=== PATIENT | male | born 1975 | race Caucasian/White ===

== ENCOUNTER 2017-03-09 19:55 | Emergency (ER) | payer OTHER ==
[2017-03-09 20:05] VITALS: BP 118/83; PULSE 73; RESP 20; TEMP 98.2
[2017-03-09] MEDS ORDERED: KETOROLAC 60 MG/2 ML VIAL IM STA (20:29)
--- NOTE | 2017-03-09 20:34 | ED ---
General Adult HPI - General Chief complaint: Extremity Injury, Upper Stated complaint: Fall Time Seen by Provider: 03/09/17 20:22 Source: patient Mode of arrival: ambulatory Limitations: no limitations - History of Present Illness Initial comments: This 41-year-old white male presents with a complaint of falling down approximately 13 steps one week ago. He states that he stepped on a toy and fell down the steps and hurt multiple areas of his body. He is complaining of some pain to his sternal region of his chest, his right ribs, his right pinky finger, his thoracic spine, and his left knee. He states that he has not followed up until now as he was trying to tough it out. He has tried Motrin without any relief. He denies any other injuries or complaints or modifying factors. - Related Data Previous Rx's Medication Instructions Recorded Amoxicillin 500 mg PO Q8H #30 capsule 03/09/17 Hydrocodone/Acetaminophen [Solomon 1 - 2 each PO Q4HR PRN #20 tab 03/09/17 5-325] Allergies Allergy/AdvReac Type Severity Reaction Status Date / Time meperidine [From Demerol] AdvReac SEIZURES Verified 03/09/17 20:29 Review of Systems ROS Statement: Those systems with pertinent positive or pertinent negative responses have been documented in the HPI. ROS Other: All systems not noted in ROS Statement are negative. Past Medical History Past Medical History: No Reported History History of Any Multi-Drug Resistant Organisms: None Reported Past Surgical History: Cholecystectomy, Orthopedic Surgery, Tonsillectomy Past Psychological History: No Psychological Hx Reported Smoking Status: Current every day smoker Past Alcohol Use History: None Reported Past Drug Use History: None Reported General Exam - General Exam Comments Initial Comments: GENERAL: The patient is well nourished and well hydrated. VITAL SIGNS: Heart rate, blood pressure, respiratory rate reviewed as recorded in nurse's notes. EYES: Pupils are round and reactive. Extraocular movements are intact. No conjunctival / lid redness or swelling. ENT: No external evidence of injury, swelling, or ecchymosis. Airway is patent. Throat is clear. There is very poor dentition noted. There is some mild swelling and tenderness present to his right maxillary region. NECK: Nontender. No swelling or evidence of injury. No subcutaneous emphysema. Trachea is midline. No thyroid mass. HEART: Regular rate and rhythm. Good peripheral pulses. LUNGS/CHEST: Breath sounds clear and equal bilaterally. No rales, rhonchi, or wheezes. There is some mild tenderness present to the sternal region. There is also some slight tenderness present to the right anterior inferior ribs. There is no ecchymosis or subcutaneous emphysema noted. ABDOMEN: Abdomen soft without tenderness. No palpable masses or organomegaly. No peritoneal signs. No abdominal wall swelling or ecchymosis. EXTREMITIES: There is some tenderness present to the bilateral perithoracic musculature. There also is some tenderness to the left knee diffusely and minimally. There is some increased pain to the right pinky finger with decreased range of motion. NEUROLOGIC: Sensation is grossly intact. Cranial nerve exam reveals face is symmetrical, tongue is midline, speech is clear. SKIN: No abrasions or ecchymosis is noted. No induration or masses noted. PSYCHIATRIC: Alert and oriented. Appropriate behavior and judgment. Limitations: no limitations Course Vital Signs 03/09/17 20:02 Temperature 98.2 F Pulse Rate 73 Respiratory 20 Rate Blood Pressure 118/83 O2 Sat by Pulse 98 Oximetry Medical Decision Making - Medical Decision Making The patient was seen and examined. All diagnostics were reviewed. The x-ray of the sternum, chest, right ribs, thoracic spine, and left knee do not show any evidence of fracture or acute process as per radiology. The x-ray of the right hand does not show any fracture per radiology but there is a suspected fracture noted to the proximal phalanx on the right fifth digit per my review. This does seem to correlate with current symptomatology. He is placed in a 3 inch Ortho-Glass custom molded splint by myself in a radial gutter fashion. He is counseled regarding his injuries in detail. He further relates that he thinks he has an abscessed tooth disease had some dull ache to his right upper dentition with some mild right facial swelling and is asking for an antibiotic. It is felt as though this is reasonable but is counseled to follow up with a dentist as soon as possible. Disposition Clinical Impression: Strain of thoracic region, Contusion of left knee, Sternal contusion, Dental abscess, Chest wall contusion, Avulsion fracture of proximal phalanx of finger Disposition: HOME SELF-CARE Condition: Good Instructions: Chest Wall Pain (ED), Finger Fracture (ED), Knee Pain (ED), Thoracic Back Strain (ED), Dental Abscess (ED) Prescriptions: Amoxicillin 500 mg PO Q8H #30 capsule Hydrocodone/Acetaminophen [Solomon 5-325] 1 - 2 each PO Q4HR PRN #20 tab PRN Reason: Pain Referrals: John Rodriguez DO [Primary Care Provider] - 1-2 days Time of Disposition: 21:39
--- NOTE | 2017-03-09 20:59 | XR ---
EXAMINATION TYPE: XR ribs RT w pa chest xray DATE OF EXAM: 03/09/2017 CLINICAL HISTORY: Chest pain. TECHNIQUE: Single frontal view of the chest is obtained. 2V right rib radiographs are obtained. COMPARISON: None FINDINGS: There is no focal air space opacity, pleural effusion, or pneumothorax seen. The cardiac silhouette size is within normal limits. No displaced fracture. No visualized rib fracture. IMPRESSION: No acute cardiopulmonary process or displaced rib fracture.
--- NOTE | 2017-03-09 21:02 | XR ---
EXAMINATION TYPE: XR thoracic spine 2V DATE OF EXAM: 03/09/2017 CLINICAL HISTORY: Fall with mid back pain. TECHNIQUE: Frontal, lateral, and swimmer's view of thoracic spine are obtained. COMPARISON: None. FINDINGS: Thoracic spine show satisfactory alignment without evidence of acute fracture or dislocatio n. Vertebral body heights and disc space heights are preserved. Visualized ribs are unremarkable. IMPRESSION: No acute fracture or dislocation is seen in the thoracic spine.
--- NOTE | 2017-03-09 21:03 | XR ---
EXAMINATION TYPE: XR knee complete LT DATE OF EXAM: 03/09/2017 CLINICAL HISTORY: Pain after fall down the stairs. TECHNIQUE: Three views of the left knee are obtained. COMPARISON: None. FINDINGS: There is no acute fracture/dislocation evident in left knee. The tri-compartment joint sp aces appear within normal limits. The overlying soft tissue appears unremarkable. IMPRESSION: There is no acute fracture or dislocation in the left knee.
--- NOTE | 2017-03-09 21:04 | XR ---
EXAMINATION TYPE: XR hand complete RT DATE OF EXAM: 03/09/2017 CLINICAL HISTORY: Pain after fall down the stairs. TECHNIQUE: Frontal, lateral and oblique images of the right hand are obtained. COMPARISON: None. FINDINGS: The patient distal interphalangeal joints are flexed during the examination, slightly limi ting evaluation. There is no acute fracture/dislocation evident in the right hand. The joint spaces i n the right hand appear within normal limits. The overlying soft tissue appears unremarkable. IMPRESSION: There is no acute fracture or dislocation in the right hand.
--- NOTE | 2017-03-09 21:07 | XR ---
EXAMINATION TYPE: XR sternum DATE OF EXAM: 03/09/2017 COMPARISON: NONE HISTORY: Fall down the stairs and sternal pain. TECHNIQUE: Frontal and lateral sternal radiographs are obtained. FINDINGS: No evidence of displaced fracture of the sternal manubrium, body, or xiphoid process. IMPRESSION: No evidence of acute fracture or dislocation.
== END 2017-03-09 21:47 | disposition home or self-care (01) ==
LOC: EC 19:55
DX: S62.616A Displaced fracture of proximal phalanx of right little finger, initial encounter for closed fracture (principal); S20.211A Contusion of right front wall of thorax, initial encounter; S80.02XA Contusion of left knee, initial encounter; K04.7 Periapical abscess without sinus; M54.6 Pain in thoracic spine; F17.200 Nicotine dependence, unspecified, uncomplicated; Z88.5 Allergy status to narcotic agent; W18.09XA Striking against other object with subsequent fall, initial encounter
CPT/HCPCS: 71101; 72070; 71120; 73130; 73562; 99284; 29125; 96372; J1885

== ENCOUNTER 2019-03-23 14:05 | Emergency (ER) | payer OTHER ==
[2019-03-23 14:14] VITALS: BP 129/67; PULSE 82; RESP 18; TEMP 98.8
--- NOTE | 2019-03-23 14:43 | ED ---
ENT HPI - General Chief complaint: ENT Stated complaint: ear & back pain Time Seen by Provider: 03/23/19 14:19 Source: patient Mode of arrival: ambulatory Limitations: no limitations - History of Present Illness Initial comments: Patient is a 43-year-old male presenting to the emergency department with chief complaint of earache. Patient reports the symptoms started approximately 2 days after he was using meth. Patient reports he has developed right ear otalgia that is exacerbated with traction of the ear. Patient also reports intermittent yellow discharge. Patient denies any fevers nausea or vomiting. Patient also reports that after he was using meth his "muscles locked up" for a short period of time. Patient reports the symptoms have not reappeared since then. Patient denies taking any medication to alleviate the symptoms. - Related Data Previous Rx's Medication Instructions Recorded Amoxicillin 500 mg PO Q8H #30 capsule 03/09/17 Hydrocodone/Acetaminophen [[place] 1 - 2 each PO Q4HR PRN #20 tab 03/09/17 5-325] Allergies Allergy/AdvReac Type Severity Reaction Status Date / Time meperidine [From Demerol] AdvReac SEIZURES Verified 03/23/19 14:14 Review of Systems ROS Statement: Those systems with pertinent positive or pertinent negative responses have been documented in the HPI. ROS Other: All systems not noted in ROS Statement are negative. Past Medical History Past Medical History: No Reported History History of Any Multi-Drug Resistant Organisms: None Reported Past Surgical History: Cholecystectomy, Orthopedic Surgery, Tonsillectomy Additional Past Surgical History / Comment(s): tendon sx. Past Psychological History: No Psychological Hx Reported Smoking Status: Current every day smoker Past Alcohol Use History: None Reported Past Drug Use History: Methamphetamine General Exam Limitations: no limitations General appearance: alert, in no apparent distress Head exam: Present: atraumatic, normocephalic, normal inspection Eye exam: Present: normal appearance, PERRL, EOMI. Absent: conjunctival injection Pupils: Present: normal accommodation ENT exam: Present: normal exam, normal oropharynx, mucous membranes moist, TM's normal bilaterally, normal external ear exam (Patent, erythematous external auditory canal in the right ear) Neck exam: Present: normal inspection, full ROM. Absent: tenderness, meningismus Respiratory exam: Present: normal lung sounds bilaterally Cardiovascular Exam: Present: regular rate, normal rhythm, normal heart sounds Extremities exam: Present: normal inspection, full ROM Back exam: Present: normal inspection, full ROM. Absent: tenderness, CVA tenderness (R), CVA tenderness (L), muscle spasm Neurological exam: Present: alert, oriented X3 Psychiatric exam: Present: normal affect, normal mood Skin exam: Present: warm, intact, normal color Course Vital Signs 03/23/19 14:08 Temperature 98.8 F Pulse Rate 82 Respiratory 18 Rate Blood Pressure 129/67 O2 Sat by Pulse 98 Oximetry Medical Decision Making - Medical Decision Making Patient is a 40-year-old male presenting to emergency Department with chief complaint of earache. Patient had developed right ear pain after using meth 2 days ago. Patient also had discharge. Physical examination there is erythema in the right external auditory canal. Tympanic membrane was visualized and it is nonbulging and not erythematous. Patient will be treated with otic drops. The case of muscle spasms after his meth could be related to the use of the illegal substance. Patient advised to avoid using meth. I counseled the patient for smoking cessation for greater than 3 minutes. Strict return parameters were thoroughly discussed the patient was understanding and agreeable. Patient was to follow with primary care if symptoms not improved. Case discussed with physician. Disposition Clinical Impression: Otitis externa Disposition: HOME SELF-CARE Condition: Stable Instructions (If sedation given, give patient instructions): Earache (ED) Additional Instructions: Please take prescribed medication as directed. Please follow with primary care. Please return to emergency department if symptoms worsen. Please avoid using meth. Is patient prescribed a controlled substance at d/c from ED?: No Referrals: None,Stated [Primary Care Provider] - 1-2 days Time of Disposition: 14:43
== END 2019-03-23 15:07 | disposition home or self-care (01) ==
LOC: EC 14:05
DX: H60.91 Unspecified otitis externa, right ear (principal); M62.830 Muscle spasm of back; F15.90 Other stimulant use, unspecified, uncomplicated; Z71.6 Tobacco abuse counseling; F17.200 Nicotine dependence, unspecified, uncomplicated; Z88.5 Allergy status to narcotic agent
CPT/HCPCS: 99283; 99406

== ENCOUNTER 2020-08-24 07:36 | Emergency (ER) | payer OTHER ==
[2020-08-24 07:40] VITALS: TEMP 98
--- NOTE | 2020-08-24 08:10 | ED ---
Chest Pain HPI - General Chief Complaint: Chest Pain Stated Complaint: Chest pain Time Seen by Provider: 08/24/20 07:44 Source: patient, RN notes reviewed Mode of arrival: ambulatory Limitations: no limitations - History of Present Illness Initial Comments: This is a 45-year-old male with a prior history of drug and alcohol abuse which she states she's been clean for quite some time now states for the past several days she's had right-sided chest pain and shortness of breath when he is in a supine position. He also states the pain is worse when he supine and she also gets worse when he is on his left side but eases up and goes way when he is on his right side. He denies any cough fevers chills nausea vomiting sweats no trauma to report he does state that many years ago he fell down steps and had pain in the same area that may have been similar to typical long time to resolve. No family history of any early cardiac disease. No other complaints or modifying factors at this time. He currently is pain-free MD Complaint: chest pain - Related Data Previous Rx's Medication Instructions Recorded Orphenadrine [Norflex] 100 mg PO Q12H #7 tablet.er 08/24/20 Allergies Allergy/AdvReac Type Severity Reaction Status Date / Time meperidine [From Demerol] AdvReac SEIZURES Verified 08/24/20 09:07 Review of Systems ROS Statement: Those systems with pertinent positive or pertinent negative responses have been documented in the HPI. ROS Other: All systems not noted in ROS Statement are negative. EKG Findings - EKG Results: EKG: interpreted by CHRISTINE, sinus rhythm (Sinus bradycardia rate of 50. Interval 174 QRS 100 QT since QTC 428/[address]-T wave changes) Past Medical History Past Medical History: No Reported History History of Any Multi-Drug Resistant Organisms: None Reported Past Surgical History: Cholecystectomy, Orthopedic Surgery, Tonsillectomy Additional Past Surgical History / Comment(s): tendon sx. Past Psychological History: No Psychological Hx Reported Smoking Status: Never smoker Past Alcohol Use History: None Reported Past Drug Use History: Methamphetamine General Exam - General Exam Comments Initial Comments: This is a well-developed well-nourished awake alert oriented 3 male Limitations: no limitations General appearance: alert, in no apparent distress Head exam: Present: atraumatic, normocephalic, normal inspection Eye exam: Present: normal appearance, PERRL, EOMI. Absent: scleral icterus, conjunctival injection, periorbital swelling ENT exam: Present: normal exam, mucous membranes moist Neck exam: Present: normal inspection, full ROM, other (no stridor JVD or bruits). Absent: tenderness, meningismus, lymphadenopathy Respiratory exam: Present: normal lung sounds bilaterally. Absent: respiratory distress, wheezes, rales, rhonchi, stridor, chest wall tenderness Cardiovascular Exam: Present: normal rhythm, bradycardia, normal heart sounds. Absent: systolic murmur, diastolic murmur, rubs, gallop, clicks GI/Abdominal exam: Present: soft, normal bowel sounds. Absent: distended, tenderness, guarding, rebound, rigid Extremities exam: Present: normal inspection, full ROM, normal capillary refill. Absent: tenderness, pedal edema, joint swelling, calf tenderness Back exam: Present: normal inspection Neurological exam: Present: alert, oriented X3, CN II-XII intact Psychiatric exam: Present: normal affect, normal mood Skin exam: Present: warm, dry, intact, normal color. Absent: rash Course Vital Signs 08/24/20 08/24/20 08/24/20 07:37 08:40 09:00 Temperature 98.0 F Pulse Rate 56 L 83 83 Respiratory 16 18 18 Rate Blood Pressure 148/81 128/79 104/75 O2 Sat by Pulse 100 99 Oximetry Chest Pain MDM - MDM Imaging reviewed no acute findings I did discuss findings with the patient. The patient's presentation is consistent with costochondritis. He does have anti- inflammatories at home he'll be placed also on a muscle relaxer he is a follow- up with his doctor return when necessary Disposition Clinical Impression: Costochondritis, Chest wall syndrome Disposition: HOME SELF-CARE Condition: Good Instructions (If sedation given, give patient instructions): Costochondritis (ED) Prescriptions: Orphenadrine [Norflex] 100 mg PO Q12H #7 tablet.er Is patient prescribed a controlled substance at d/c from ED?: No Referrals: John Rodriguez DO [Primary Care Provider] - 1-2 days
[2020-08-24 08:42] LABS: Basophils % (A) 0 %; Eosinophils # (A) 0.2 k/uL (0-0.7); Eosinophils % (A) 3 %; HCT 45.4 % (39.0-53.0); HGB 15.4 gm/dL (13.0-17.5); Lymphocytes # (A) 2.5 k/uL (1.0-4.8); Lymphocytes % (A) 35 %; MCH 29.7 pg (25.0-35.0); MCV 87.5 fL (80.0-100.0); Mean Platelet Volume 7.2; Monocytes # (A) 0.3 k/uL (0-1.0); Monocytes % (A) 5 %; Neutrophils % (A) 57 %; Platelet Count 285 k/uL (150-450); RBC 5.18 m/uL (4.30-5.90); RDW 12.8 % (11.5-15.5); WBC 7.1 k/uL (3.8-10.6)
--- NOTE | 2020-08-24 08:42 | XR ---
EXAMINATION TYPE: XR chest 2V DATE OF EXAM: 08/24/2020 COMPARISON: None INDICATION: Chest pain TECHNIQUE: Frontal and lateral views of the chest are obtained. FINDINGS: The heart size is normal. The pulmonary vasculature is normal. The lungs are clear. No pneumothorax IMPRESSION: 1. No acute pulmonary process.
[2020-08-24 08:54] LABS: INR 1.2 (<1.2)
[2020-08-24 08:55] LABS: Prothrombin Time 12.3 sec (9.0-12.0)
[2020-08-24 09:03] LABS: ALT 27 U/L (4-49); African American GFR (CKD) >90 (>60 ml/min/1.73 sqM); Albumin 4.1 g/dL (3.5-5.0); Anion Gap 9 mmol/L; Blood Urea Nitrogen 13 mg/dL (9-20); Calcium 9.5 mg/dL (8.4-10.2); Carbon Dioxide 23 mmol/L (22-30); Chloride 106 mmol/L (98-107); Creatine Kinase 78 U/L (55-170); Glucose 98 mg/dL (74-99); Non-African American GFR(CKD) >90 (>60 ml/min/1.73 sqM); Sodium 138 mmol/L (137-145); Total Bilirubin 0.6 mg/dL (0.2-1.3); Total Protein 6.8 g/dL (6.3-8.2)
[2020-08-24 09:04] LABS: AST 22 U/L (17-59); Alkaline Phosphatase 74 U/L (38-126); Magnesium 1.9 mg/dL (1.6-2.3)
[2020-08-24 09:07] LABS: Partial Thromboplastin Time 19.7 sec (22.0-30.0)
[2020-08-24 09:39] VITALS: RESP 18
[2020-08-24] MEDS ORDERED: KETOROLAC 15 MG/ML 1 ML VIAL IVP STA (10:25)
[2020-08-24 10:36] VITALS: BP 124/83; PULSE 78
== END 2020-08-24 10:40 | disposition home or self-care (01) ==
LOC: EC 07:36
DX: M94.0 Chondrocostal junction syndrome [Tietze] (principal); R07.1 Chest pain on breathing; Z90.49 Acquired absence of other specified parts of digestive tract; Z90.09 Acquired absence of other part of head and neck
CPT/HCPCS: 36415; 93005; 83880; 80053; 82550; 83735; 84484; 85025; 85610; 85730; 71046; 99285; 96374; J1885

== ENCOUNTER 2020-12-29 11:39 | Emergency (ER) | payer OTHER ==
[2020-12-29 11:46] VITALS: BP 135/85; PULSE 97; RESP 16; TEMP 98.5
[2020-12-29] MEDS ORDERED: LIDOCAINE 1% INJ 10MG/ML (20 ML MDV) SQ ONE (12:13)
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
== END 2020-12-29 12:50 | disposition home or self-care (01) ==
LOC: EC 11:39
DX: S70.11XA Contusion of right thigh, initial encounter (principal); F17.200 Nicotine dependence, unspecified, uncomplicated; F15.90 Other stimulant use, unspecified, uncomplicated; Z79.899 Other long term (current) drug therapy; W22.8XXA Striking against or struck by other objects, initial encounter
CPT/HCPCS: 99283

== ENCOUNTER 2021-07-30 18:51 | Emergency (ER) | payer OTHER ==
[2021-07-30 19:02] VITALS: TEMP 97.3
[2021-07-30] MEDS ORDERED: KETOROLAC 15 MG/ML 1 ML VIAL IM STA (19:22)
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
[2021-07-30 20:27] VITALS: BP 139/89; PULSE 72; RESP 16
== END 2021-07-30 20:53 | disposition home or self-care (01) ==
LOC: EC 18:51
DX: M54.59 Other low back pain (principal); F17.200 Nicotine dependence, unspecified, uncomplicated; Z90.49 Acquired absence of other specified parts of digestive tract
CPT/HCPCS: 99283; 96372; J1885

== ENCOUNTER 2021-07-31 02:41 | Emergency (ER) | payer OTHER ==
[2021-07-31 02:51] VITALS: RESP 16
--- NOTE | 2021-07-31 03:58 | XR ---
EXAMINATION TYPE: XR ankle limited RT DATE OF EXAM: 07/31/2021 COMPARISON: NONE HISTORY: Fall. Pain TECHNIQUE: 2 view FINDINGS: Ankle mortise is anatomic. I see no fracture nor dislocation. Joint spaces are fairly justin l. IMPRESSION: Negative right ankle exam. No fracture
--- NOTE | 2021-07-31 03:59 | XR ---
EXAMINATION TYPE: XR foot limited RT DATE OF EXAM: 07/31/2021 COMPARISON: NONE HISTORY: Pain TECHNIQUE: 2 view FINDINGS: Metatarsals appear intact. I see no fracture nor dislocation. Joint spaces are fairly justin l. IMPRESSION: Negative right foot exam.
--- NOTE | 2021-07-31 04:00 | XR ---
EXAMINATION TYPE: XR femur LT DATE OF EXAM: 07/31/2021 COMPARISON: NONE HISTORY: Pain TECHNIQUE: 4 views FINDINGS: The left hip joint is intact. Knee joint is intact. I see no fracture nor dislocation. Ther e is no sign of any joint effusion. IMPRESSION: Negative left femur exam.
--- NOTE | 2021-07-31 04:02 | CT ---
EXAMINATION TYPE: CT brain cspine wo con DATE OF EXAM: 07/31/2021 COMPARISON: None HISTORY: AMS Fall CT DLP: 2608.5 mGycm Automated exposure control for dose reduction was used. Images of the brain and cervical spine obtained without contrast. Ventricles and sulci appear normal. There is no mass effect or midline shift. There is no sign of int racranial hemorrhage. The calvarium is intact. There is limited pneumatization of the mastoid sinuses . The cervical vertebra have normal alignment. There is mild degenerative spur formation from C4 to T1. There is no compression fracture. Facet joints are intact. Prevertebral soft tissues are intact. The skull base is intact. IMPRESSION: Mild degenerative spurring in the mid and lower cervical spine. No fracture. Negative CT scan of the brain.
[2021-07-31 06:52] VITALS: BP 110/73; PULSE 91; TEMP 98
--- NOTE | 2021-07-31 06:54 | ED ---
General Adult HPI - General Chief complaint: Wound/Laceration Stated complaint: ETOH Time Seen by Provider: 07/31/21 03:05 Source: patient Mode of arrival: EMS Limitations: no limitations - History of Present Illness Initial comments: This patient is a 46-year-old man brought in after he was observed sleeping outdoors. The patient states that he is homeless. There was concern about whether he had laceration area the patient states that he did strike his leg. Denies laceration. Patient denies complaints -: hour(s) Location: lower extremity Radiation: non-radiation Consistency: now resolved Improves with: none Worsens with: none Treatments Prior to Arrival: none - Related Data Previous Rx's Medication Instructions Recorded Orphenadrine [Norflex] 100 mg PO Q12H #7 tablet.er 08/24/20 Allergies Allergy/AdvReac Type Severity Reaction Status Date / Time meperidine [From Demerol] AdvReac SEIZURES Verified 07/30/21 19:03 Review of Systems ROS Statement: Those systems with pertinent positive or pertinent negative responses have been documented in the HPI. ROS Other: All systems not noted in ROS Statement are negative. Constitutional: Denies: fever, chills Respiratory: Denies: cough, dyspnea Cardiovascular: Denies: chest pain, palpitations Gastrointestinal: Denies: abdominal pain, vomiting Musculoskeletal: Denies: back pain Skin: Denies: rash Neurological: Denies: headache, weakness Past Medical History Past Medical History: No Reported History History of Any Multi-Drug Resistant Organisms: None Reported Past Surgical History: Cholecystectomy, Orthopedic Surgery, Tonsillectomy Additional Past Surgical History / Comment(s): tendon sx. Past Psychological History: No Psychological Hx Reported Smoking Status: Current every day smoker Past Alcohol Use History: None Reported Past Drug Use History: Methamphetamine General Exam Limitations: no limitations General appearance: alert, in no apparent distress Head exam: Present: atraumatic, normocephalic Eye exam: Present: normal appearance. Absent: scleral icterus, conjunctival injection Neck exam: Present: normal inspection Respiratory exam: Present: normal lung sounds bilaterally. Absent: respiratory distress, wheezes, rales, rhonchi, stridor Cardiovascular Exam: Present: regular rate, normal rhythm, normal heart sounds. Absent: systolic murmur, diastolic murmur, rubs, gallop GI/Abdominal exam: Present: soft. Absent: distended, tenderness, guarding, rebound Extremities exam: Present: normal inspection, normal capillary refill, other (Abrasion to the anterior aspect lower leg). Absent: pedal edema, calf tenderness Back exam: Present: normal inspection. Absent: vertebral tenderness Neurological exam: Present: alert. Absent: motor sensory deficit Skin exam: Present: warm, dry, intact, normal color, abrasion Course Vital Signs 07/31/21 07/31/21 02:44 06:30 Temperature 98.4 F 98.0 F Pulse Rate 57 L 91 Respiratory 16 16 Rate Blood Pressure 110/61 110/73 O2 Sat by Pulse 100 97 Oximetry Medical Decision Making - Medical Decision Making Patient's 46-year-old man here to be evaluated for exposure. Patient's exam unremarkable. He is allowed to rest in the department overnight. Disposition Clinical Impression: Fall, Contusion of leg Disposition: HOME SELF-CARE Condition: Good Instructions (If sedation given, give patient instructions): Contusion in Adults (ED), Fall Prevention (ED) Is patient prescribed a controlled substance at d/c from ED?: No Referrals: John Rodriguez, DO [Primary Care Provider] - 1-2 days
== END 2021-07-31 07:32 | disposition home or self-care (01) ==
LOC: EC 02:41
DX: S80.10XA Contusion of unspecified lower leg, initial encounter (principal); F17.200 Nicotine dependence, unspecified, uncomplicated; Z90.49 Acquired absence of other specified parts of digestive tract; X58.XXXA Exposure to other specified factors, initial encounter
CPT/HCPCS: 70450; 72125; 99284